=== PATIENT | male | born 1960 | race Caucasian/White ===

== ENCOUNTER 2016-12-15 06:34 | Emergency (ER) | payer BC ==
[~2016-12-15] VITALS: Ht 182.9 cm; Wt 100.5 kg
[2016-12-15 06:38] VITALS: Ht 182.9 cm; Wt 100.5 kg
--- NOTE | 2016-12-15 07:02 | EMERGENCY ROOM VISIT NOTE ---
History Report prepared by Ac: Marilin Tay Under the Supervision of: Dr. Wiley Canales M.D. First contact with patient: 06:45 Chief Complaint: KNEEPAIN Stated Complaint: LEFT KNEE History of Present Illness The patient is a 56 year old male who presents to the Emergency Room with complaints of persistent left knee pain for the past 10 days. He present to the ED today after the pain worsening yesterday and the back of his knee was swollen. The pain is mostly present in the back of his knee. The pain worsens with movement. He has not experienced any relief with Motrin, Tylenol, Aleve, arthritis medication, heat, or leg sleeves. He denies any injury to his knee. He denies any pain or swelling in his foot. He denies any numbness, weakness, fever, chills, chest pain, or SOB. He is a field services analyst. He denies any recent travel. He has a history of hypertension. Source of History: patient Onset: 10 days ago Position: knee (left) Quality: other (pain) Timing: other (persistent) Modifying Factors (Worsening): movement Associated Symptoms: No SOB, No chest pain, No chills, No fevers, No numbness, No weakness Note: Pt reports swelling in his knee. Review of Systems See HPI for pertinent positives & negatives. A total of 10 systems reviewed and were otherwise negative. Past Medical & Surgical Medical Problems: (1) Hypertension Old medical records were reviewed. Nurse's notes were reviewed and I agree with. Family History Hypertension Social History Smoking Status: Never Smoker Alcohol Use: none Marital Status: Housing Status: lives with significant other Occupation Status: employed Current/Historical Medications Scheduled Lisinopril (Lisinopril), 10 MG PO DAILY Scheduled PRN Ibuprofen (Motrin), 600 MG PO Q6H PRN for Pain Allergies Coded Allergies: Penicillins (Verified Allergy, Unknown, unknown, 12/15/16) Physical Exam Vital Signs Date Time Temp Pulse Resp B/P Pulse Ox O2 Delivery O2 Flow Rate FiO2 12/15/16 08:10 36.8 70 16 144/97 92 12/15/16 06:38 36.7 73 20 153/107 95 Room Air Physical Exam General: Non ill-appearing middle aged male. Well developed well nourished in no acute distress, breathing comfortably on room air. Normal speech HEENT: Normal cephalic atraumatic. Pupils are equal round and reactive to light. Extraocular movements are intact. Oropharynx is pink with moist mucous membranes. No swelling of the mouth lips or tongue. Neck: Supple with a midline trachea. No meningeal signs or stiffness, no JVD or bruits. No Stridor. Chest: Clear to auscultation bilaterally. No wheezes or rhonchi. No increased work of breathing. Heart: regular rate and rhythm. Abdomen: Soft nontender, nondistended without rebound guarding or rigidity. Extremities: No cyanosis clubbing or edema. No calf tenderness or assymetry. Left knee is tender posteriorly without redness or warmth, 2+ distal pulses, normal motor sensation. Spine/Back. Non tender to palpation. No CVA tenderness Skin: Good turgor without rashes. Neurologic exam: Cranial nerves two through 12 are intact. Motor and sensation are intact and symmetrical throughout. Medical Decision & Procedures ER Provider Diagnostic Interpretation: X-ray results as stated below per interpretation by me and the radiologist. Radiology results as stated below per my review and radiologist interpretation: LEFT KNEE 1 OR 2 VIEWS ROUTINE CLINICAL HISTORY: eval for left knee pain COMPARISON: None. DISCUSSION: The bones and joint spaces appear intact. There is no evidence of fracture, dislocation or bony disease. There is no evidence for soft tissue swelling. IMPRESSION: Negative study. Electronically signed by: Juan Martinez M.D. 12/15/2016 7:47 AM Dictated Date/Time: 12/15/2016 7:47 AM LEFT LOWER EXTREMITY VENOUS DOPPLER HISTORY: Left leg swelling and pain. COMPARISON STUDY: None. FINDINGS: There is normal compressibility, flow, and augmentation within the left lower extremity deep venous system. IMPRESSION: No DVT within the left lower extremity. Electronically signed by: Byron Nagel M.D. 12/15/2016 7:39 AM Dictated Date/Time: 12/15/2016 7:39 AM ED Course 0646: Past medical records reviewed. The patient was evaluated in room A11B, and a complete history and physical examination were performed. 0753: Upon reevaluation, the patient is feeling better. I discussed the results and treatment plan with him. He verbalized agreement of the treatment plan. The patient was discharged home. Medical Decision Differential diagnoses: DVT, popliteal cyst, infection, musculoskeletal. This patient comes in with left posterior knee pain. There is no known injury. He's had no fever or chills. He is neurologically and neurovascularly intact. The knee itself is not red or warm or swollen and he has no evidence suggest infection. X-ray and ultrasound were both obtained. He was reassessed frequently. Ultrasound was unremarkable is no evidence of DVT or popliteal cyst. X-ray was unremarkable as well. He has nothing to suggest a bony abnormality. Most likely this is musculoskeletal and it may be tendinitis. He is continue to use anti-inflammatory and to rest ice and elevate. I'll up with doctor next couple is recheck or return to the ER if: Increasing pain, worsening of symptoms, fever or chills, numbness wheezes, any new problems concerns. He was happy with plan and discharged to home. Impression Primary Impression: Left knee pain Additional Impression: Tendonitis Scribe Attestation The scribe's documentation has been prepared under my direction and personally reviewed by me in its entirety. I confirm that the note above accurately reflects all work, treatment, procedures, and medical decision making performed by me. Departure Information Dispostion Home / Self-Care Referrals Pro,Michael Chen M.D. (PCP) Forms HOME CARE DOCUMENTATION FORM, IMPORTANT VISIT INFORMATION Patient Instructions My [facility] [employer] Additional Instructions Rest. Drink plenty of fluids. Ice intermittently. Use Armani wrap. Return if: Worsening of symptoms, increasing pain or swelling, numbness or weakness, fever or chills, any new problems or concerns Use ibuprofen or another anti-inflammatory. Follow-up with your doctor on Monday for recheck if not better or return ER over the weekend if symptoms worsen Problem Qualifiers
[2016-12-15] MEDS ORDERED: LISI-461 PO (07:06)
[2016-12-15] MEDS ORDERED: IBUP-1450 PO (07:06)
--- NOTE | 2016-12-15 07:41 | DIAGNOSTIC IMAGING REPORT ---
LEFT LOWER EXTREMITY VENOUS DOPPLER HISTORY: Left leg swelling and pain. COMPARISON STUDY: None. FINDINGS: There is normal compressibility, flow, and augmentation within the left lower extremity deep venous system. IMPRESSION: No DVT within the left lower extremity. Electronically signed by: Byron Nagel M.D. 12/15/2016 7:39 AM Dictated Date/Time: 12/15/2016 7:39 AM
--- NOTE | 2016-12-15 07:49 | DIAGNOSTIC IMAGING REPORT ---
LEFT KNEE 1 OR 2 VIEWS ROUTINE CLINICAL HISTORY: eval for left knee pain COMPARISON: None. DISCUSSION: The bones and joint spaces appear intact. There is no evidence of fracture, dislocation or bony disease. There is no evidence for soft tissue swelling. IMPRESSION: Negative study. Electronically signed by: Juan Martinez M.D. 12/15/2016 7:47 AM Dictated Date/Time: 12/15/2016 7:47 AM
[2016-12-15 08:10] VITALS: BP 144/97; PULSE 70; TEMP 36.8; O2SAT 92
== END 2016-12-15 08:17 | disposition home or self-care (01) ==
LOC: C.EDB 06:35 → C.EDA 08:17
DX: M25.562 Pain in left knee (principal); I10 Essential (primary) hypertension; Z79.899 Other long term (current) drug therapy; Z88.0 Allergy status to penicillin; Z82.49 Family history of ischemic heart disease and other diseases of the circulatory system

== ENCOUNTER → 2017-03-07 | Outpatient (CLI) | payer BC ==
[~2017-03-07] MED LIST: IBUP-1450 PO; LISI-461 PO
[2017-03-07 12:32] LABS: BASO % 1.1 %; BASO ABS # 0.07 K/uL (0-0.2); COMPLETE YES; EOS % 10.2 %; HEMATOCRIT 45.6 % (42-52); IG% 0.2 %; LYMPH ABS # 1.88 K/uL (1.2-3.4); MEAN CORPUSCULAR HEMOGLOBIN 30.8 pg (25-34); MEAN CORPUSCULAR HGB CONC 35.7 g/dl (32-36); MEAN PLATELET VOLUME 9.8 fL (7.4-10.4); MONO % 8.5 %; PLATELET COUNT 290 K/uL (130-400); WHITE BLOOD COUNT 6.48 K/uL (4.8-10.8)
[2017-03-07 13:08] LABS: RHEUMATOID FACTOR < 10.0 U/mL (0-15); URIC ACID 5.7 mg/dl (2.6-7.2)
[2017-03-07 14:23] LABS: ALT/SGPT 38 U/L (12-78); AST/SGOT 24 U/L (15-37); BLOOD UREA NITROGEN 10 mg/dl (7-18); BUN/CREATININE RATIO 12.2 (10-20); CARBON DIOXIDE 28 mmol/L (21-32); CHLORIDE 103 mmol/L (98-107); GLUCOSE 94 mg/dl (70-99); POTASSIUM 4.4 mmol/L (3.5-5.1); SODIUM 134 mmol/L (136-145)
[2017-03-07 14:28] LABS: CHOLESTEROL 209 mg/dl (0-200); CHOLESTEROL/HDL RATIO 4.4; HDL CHOLESTEROL 48 mg/dl; LDL CHOLESTEROL CALCULATED 150 mg/dl; PROSTATE SPECIFIC ANTIGEN 0.415 ng/ml (0.000-4.000); TRIGLYCERIDES 53 mg/dl (0-150); VERY LOW DENSITY LIPOPROT CALC 11 mg/dl
[2017-03-07 14:31] LABS: CALCIUM 9.3 mg/dl (8.5-10.1)
[2017-03-07 14:38] LABS: LYME DISEASE AB IGG NEG (NEG)
[2017-03-07 14:39] LABS: LYME DISEASE AB IGM NEG (NEG)
== END | disposition home or self-care (01) ==
LOC: C.LABPBG 07:36
PROVIDERS: ATTEND Internal Medicine
DX: M25.562 Pain in left knee (principal); E78.00 Pure hypercholesterolemia, unspecified; R53.83 Other fatigue; I10 Essential (primary) hypertension; Z12.5 Encounter for screening for malignant neoplasm of prostate

== ENCOUNTER → 2017-03-31 | Outpatient (CLI) | payer BC ==
[~2017-03-31] MED LIST changes: +GADAVIST IV PRN
--- NOTE | 2017-03-31 14:20 | DIAGNOSTIC IMAGING REPORT ---
MRI OF THE LEFT KNEE WITH AND WITHOUT CONTRAST CLINICAL HISTORY: Persistent left knee pain. COMPARISON STUDY: Left knee radiographs December 15, 2016. TECHNIQUE: Utilizing a 1.5 Doris magnet, multiplanar, multi echo imaging of the left knee was performed pre and postcontrast administration. Injection of 10 cc of Gadavist IV was uneventful. FINDINGS: Alignment of left knee is anatomic. Extensor mechanism is intact. There is a small left knee joint effusion. No loose bodies identified. There is moderate synovial enhancement. This enhancement is slightly nodular overlying the lateral femoral condyle. There is no suspicious marrow replacement. There is no evidence of fracture. The anterior and posterior cruciate ligaments are intact. The medial collateral ligament and lateral collateral ligament complex are intact. There is moderate chondrosis of the medial femoral condyle and mild chondrosis of the medial tibial plateau as well as the medial patellar cartilage. The lateral meniscus is intact. There is increased signal within the posterior root of the medial meniscus which suggest a posterior root meniscal tear. IMPRESSION: 1. Increased amorphous signal within the posterior root of the medial meniscus suggestive of a posterior root tear. 2. Moderate chondrosis within the medial compartment and mild chondrosis within the patellofemoral compartment. 3. Small left knee joint effusion. Moderate synovial enhancement which is predominantly smooth with the exception of nodular enhancement overlying the lateral femoral condyle which suggests synovitis. This is nonspecific. Electronically signed by: Aldo Hammond M.D. 03/31/2017 2:19 PM Dictated Date/Time: 03/31/2017 1:07 PM
== END | disposition home or self-care (01) ==
LOC: C.MRI 11:43
PROVIDERS: ATTEND Physician Assistant
DX: M25.562 Pain in left knee (principal); M25.462 Effusion, left knee

== ENCOUNTER → 2017-04-06 | Outpatient (CLI) | payer BC ==
[~2017-04-06] MED LIST changes: -GADAVIST IV PRN
[2017-04-06 13:03] LABS: SYNOVIAL FLUID APPEARANCE CLEAR; SYNOVIAL FLUID COLOR YELLOW; SYNOVIAL FLUID MONONUC RELAT 81.6 %; SYNOVIAL FLUID POLYNUC RELAT 18.4 %
== END | disposition home or self-care (01) ==
LOC: C.LABBC 09:19
PROVIDERS: ATTEND Orthopaedic Surgery
DX: M25.462 Effusion, left knee (principal)